=== PATIENT | male | born 1985 | race African-American/Black ===

== ENCOUNTER 2016-08-30 03:00 | Emergency (ER) | payer SELFPAY | END 2016-08-30 03:30 | disposition left against medical advice (07) | LOC: CED 03:00 | DX: Z53.21 Procedure and treatment not carried out due to patient leaving prior to being seen by health care provider (principal) ==

== ENCOUNTER 2016-10-16 07:52 | Emergency (ER) | payer SELFPAY | END 2016-10-16 08:46 | disposition home or self-care (01) | LOC: CFTX 07:52 | DX: J45.901 Unspecified asthma with (acute) exacerbation (principal) | CPT/HCPCS: 94640; 99283 ==